=== PATIENT | female | born 1970 | race American Indian/Alaskan Native ===

== ENCOUNTER 2017-10-03 06:51 | Emergency (ER) | payer MEDICAID ==
[2017-10-03 07:37] VITALS: BP 128/88
[2017-10-03 08:42] LABS: Basophils # (Auto) 0.1 K/mm3 (0.0-0.1); Eosinophils # (Auto) 0.2 K/mm3 (0.0-0.4); Eosinophils % (Auto) 3.7 % (0.0-4.3); Hematocrit 34.2 % (30.3-42.9); Hemoglobin 11.3 gm/dl (10.1-14.3); Lymphocytes # (Auto) 1.4 K/mm3 (1.2-5.4); Lymphocytes % (Auto) 23.5 % (13.4-35.0); Mean Corpuscular HGB Conc 33 % (30-34); Mean Corpuscular Hemoglobin 28 pg (28-32); Mean Corpuscular Volume 84 fl (79-97); Monocytes # (Auto) 0.8 K/mm3 (0.0-0.8); Monocytes % (Auto) 12.8 % (0.0-7.3); Platelet Count 290 K/mm3 (140-440); Red Cell Distribution Width 14.7 % (13.2-15.2)
[2017-10-03 08:58] LABS: BUN/Creatinine Ratio 10; Blood Urea Nitrogen 7 mg/dL (7-17); Calcium 9.2 mg/dL (8.4-10.2); Hemolysis Index 16
--- NOTE | 2017-10-03 10:29 | XRay Report ---
ROUTINE CHEST, TWO VIEWS: HISTORY: Right chest pain, rib pain. The trachea, heart, mediastinal contour, lung moe and bony thorax are unremarkable. No right rib deformity as detected on x-ray. IMPRESSION: Unremarkable chest x-ray.
== END 2017-10-03 22:15 | disposition left against medical advice (07) ==
LOC: ED 06:51
DX: R07.89 Other chest pain (principal); Z53.21 Procedure and treatment not carried out due to patient leaving prior to being seen by health care provider
CPT/HCPCS: 36415; 71046; 80048; 84484; 85025; 93005; 93010